=== PATIENT | male | born 1950 | race Caucasian/White ===

== ENCOUNTER 2018-03-28 09:16 | Emergency (ER) | payer MEDICARE, SELFPAY ==
[2018-03-28 09:20] VITALS: BP 149/88; PULSE 66; RESP 14; TEMP 36.7; O2SAT 95; BMI 34.3
--- NOTE | 2018-03-28 09:37 | DI.RAD.S_ITS ---
PROCEDURE: XR CHEST 2V INDICATIONS: cough x months TECHNIQUE: 2 views of the chest were acquired. COMPARISON: None. FINDINGS: Surgical changes and devices: None. Lungs and pleura: No pleural effusions or pneumothorax. Lungs are clear. Mediastinum: Mediastinal contours are normal. Heart size is normal. Bones and chest wall: No suspicious bony abnormalities. Soft tissues appear unremarkable. IMPRESSION: No acute process. Dictated by: Rahat Woodard M.D. on 03/28/2018 at 10:33 Approved by: Rahat Woodard M.D. on 03/28/2018 at 10:34
[2018-03-28] MEDS: ALBUTEROL/IPRATROPIUM 3 ML AMPUL INH (09:49)
--- NOTE | 2018-03-28 09:49 | ED.URI ---
HPI - URI/Sore Throat General Chief Complaint: Headache Stated Complaint: severe headaches when he coughs Time Seen by Provider: 03/28/18 09:41 Source: patient Mode of arrival: ambulatory Limitations: no limitations History of Present Illness HPI Narrative: Patient is 67-year-old male who presents with a variety of complaints. He has had some upper respiratory problems ongoing for at least a week. He says that he has been coughing quite a bit he denies any chest pain or shortness of breath. He says when he coughs his head hurts and his stomach hurts. He has no nausea or vomiting no abdominal pain. He does cough some stuff up. He at baseline has some sinus issues takes multiple medications for that. He denies any fever or neck pain. He says when he coughs the front of his head hurts worst. Denies fever or body aches MD Complaint: cough, sore throat, nasal congestion and sinus pain Related Data Home Medications Medication Instructions Recorded Confirmed azelastine 1 drp OPHTHALMIC (EYE) BID PRN 03/28/18 03/28/18 fluticasone-salmeterol [Advair 1 puff INHALATION BID 03/28/18 Diskus] lisinopril 10 mg PO DAILY 03/28/18 03/28/18 simvastatin 40 mg PO DAILY 03/28/18 03/28/18 Previous Rx's Medication Instructions Recorded albuterol sulfate 1 puff INHALATION Q4-6H PRN #8 gram 03/28/18 amoxicillin-pot clavulanate 1 tab PO BID #14 tab 03/28/18 [Augmentin] Review of Systems Review of Systems All systems reviewed & are unremarkable except as noted in HPI and below Constitutional Reports as per HPI, Denies body ache(s), Denies fever(s), Denies frequent falls and Reports headache(s) Eyes Denies blurry vision and Denies change in vision ENT Ears, Nose, Mouth, and Throat: Reports headache(s) Cardiovascular Denies chest pain, Denies irregular heart rhythm, Denies lightheadedness, Denies palpitations, Denies dyspnea, Denies dyspnea on exertion and Denies orthopnea Respiratory Reports change in phlegm color, Reports chest congestion, Reports cough, Reports pain with cough (Abdomen and head), Denies dyspnea and Denies dyspnea on exertion Gastrointestinal Gastrointestinal: Denies abdominal pain, Denies change in bowel habits, Denies diarrhea, Denies nausea and Denies vomiting Integumentary/Breasts Denies pruritus, Denies erythema, Denies rash and Denies wounds Neurologic Denies frequent falls and Reports headache(s) Endocrine Denies palpitations PFSH Medical History Hypertension (Acute) Pre-diabetes (Chronic) Social History Smoking Status: Former smoker Exam Initial Vital Signs Initial Vital Signs: Vital Signs Temperature 98.1 F 03/28/18 09:20 Pulse Rate 66 03/28/18 09:20 Respiratory Rate 14 03/28/18 09:20 Blood Pressure 149/88 H 03/28/18 09:20 Pulse Oximetry 95 03/28/18 09:20 GENERAL: Overweight male alert oriented does not appear in distress HEENT: Head atraumatic,EOMI, pupils reactive, tender over forehead palpation no maxillary sinus tenderness neck is supple PHARYNX: No erythema, no tonsillar exudate, no cervical lymphadenopathy CARDIOVASCULAR: Regular rate and rhythm without murmurs, rubs or gallops. RESPIRATORY: Breath sounds equal bilaterally, no wheezes rales or rhonchi. ABDOMEN: Soft, nontender. Normoactive bowel sounds all 4 quadrants. No guarding or rebound. EXTREMITIES: Normal range of motion, no clubbing or edema. Neurovascularly intact NEUROLOGICAL: Alert and oriented x4.Normal gait and speech. Cranial nerves II through XII grossly intact. SKIN: Warm, dry, no laceration, no petechiae, no rashes or lesions. Course Orders Ordered: ED Orders 03/28/18 09:37 Chest [XR chest 2V] Stat Discontinued Medications Albuterol/Ipratropium (Duoneb) 3 ml INH NOW ONE Stop: 03/28/18 09:38 Last Admin: 03/28/18 09:49 Dose: 3 ml Vital Signs - 8 hr 03/28/18 09:20 03/28/18 09:52 03/28/18 11:07 Temperature 98.1 F Pulse Rate 66 67 Respiratory Rate 14 12 Blood Pressure 149/88 H Blood Pressure [Right Arm] 154/77 H Pulse Oximetry 95 95 95 MDM - URI/Sore Throat Lab Data Attestation: I reviewed the patient's lab results. Imaging Data Chest x-ray: Radiologist's impression: PROCEDURE: XR CHEST 2V INDICATIONS: cough x months TECHNIQUE: 2 views of the chest were acquired. COMPARISON: None. FINDINGS: Surgical changes and devices: None. Lungs and pleura: No pleural effusions or pneumothorax. Lungs are clear. Mediastinum: Mediastinal contours are normal. Heart size is normal. Bones and chest wall: No suspicious bony abnormalities. Soft tissues appear unremarkable. IMPRESSION: No acute process. Dictated by: Rahat Woodard M.D. on 03/28/2018 at 10:33 Discharge Plan Departure Patient Disposition: Home Clinical Impression: Upper respiratory infection Discharge Date/Time: 03/28/18 11:09 Interventions: ED Discharge Assessment Last Done: 03/28/18 11:08 Instructions: DI for Sinusitis Activity Restrictions/Additional Instructions: *You have been diagnosed with a sinusitis upper respiratory infection *What to do: Chest x-ray is clear no pneumonia *Continue to take medications as directed Augmentin 875 twice a day Albuterol 1-2 puffs every 4 hr if needed for coughing episodes *Follow up with your primary care provider in 2-3 days *Return to ER if you should have fever [or] any new, worsening or concerning symptoms Prescriptions: New albuterol sulfate 90 mcg/actuation HFA aerosol inhaler 1 puff INHALATION Q4-6H PRN (Reason: shortness of breath or wheezing) Qty: 8 RF: 0 amoxicillin-pot clavulanate [Augmentin] 875-125 mg tablet 1 tab PO BID Qty: 14 RF: 0 No Action azelastine 0.05 % drops 1 drp ophthalmic (eye) BID PRN (Reason: Allergy Symptoms) RF: 0 simvastatin 40 mg tablet 40 mg PO DAILY RF: 0 lisinopril 10 mg tablet 10 mg PO DAILY RF: 0 fluticasone-salmeterol [Advair Diskus] 500-50 mcg/dose blister with device 1 puff Inhalation BID RF: 0
[2018-03-28 09:52] VITALS: O2SAT 95
[2018-03-28 11:07] VITALS: BP 154/77; PULSE 67; RESP 12; O2SAT 95
== END 2018-03-28 11:09 | disposition home or self-care (01) ==
PROVIDERS: Emergency Provider Emergency Medicine
DX: J06.9 Acute upper respiratory infection, unspecified (principal)
CPT/HCPCS: 71046; 94640; 99282; 99283

== ENCOUNTER → 2022-08-19 13:07 | Outpatient (CLI) | payer MEDICARE, SELFPAY ==
[2022-08-19 14:28] LABS: Influenza A - CEPHEID Flu A NEGATIVE (NEGATIVE); Influenza B - CEPHEID Flu B NEGATIVE (NEGATIVE); Respiratory Syncytial Virus Negative (Negative)
[2022-08-19 14:30] LABS: COVID-19 CEPHEID 4-PLEX PCR Negative (Negative)
== END ==
PROVIDERS: Visit Provider Nurse Practitioner Family
DX: R05.1 Acute cough (principal); Z20.822 Contact with and (suspected) exposure to COVID-19
CPT/HCPCS: 0241U

== ENCOUNTER 2023-03-16 11:43 | Emergency (ER) | payer MEDICARE, SELFPAY ==
[2023-03-16 11:54] VITALS: BP 160/87; PULSE 82; RESP 20; TEMP 36.6; O2SAT 97; BMI 34.9
--- NOTE | 2023-03-16 12:04 | DI.RAD.S_ITS ---
PROCEDURE: XR CHEST 2V INDICATIONS: cough TECHNIQUE: 2 views of the chest were acquired. COMPARISON: [facility], CR, XR CHEST 2V, 03/28/2018, 9:51. FINDINGS: Surgical changes and devices: None. Lungs and pleura: There is mild atelectasis at the left lung base. The lungs are otherwise clear. No pleural effusion or pneumothorax. Mediastinum: Mediastinal contours are normal. Heart size is normal. Bones and chest wall: No suspicious bony abnormalities. Soft tissues appear unremarkable. IMPRESSION: Left basilar atelectasis. No acute cardiopulmonary findings. Dictated by: Alisha Villarreal M.D. on 03/16/2023 at 12:49 Approved by: Alisha Villarreal M.D. on 03/16/2023 at 12:49
--- NOTE | 2023-03-16 13:52 | ED_ITS ---
HPI - URI/Sore Throat <Aman Antonio PA-C - Last Filed: 03/16/23 13:59> General Chief Complaint: Upper Respiratory Symptoms Stated Complaint: hurts when coughs t-14 Time Seen by Provider: 03/16/23 13:02 Source: patient Mode of arrival: Ambulatory History of Present Illness HPI Narrative: 72-year-old male with past medical history diabetes, hyperlipidemia, hypertension, asthma presents to the ED with 1 week of persistent cough following a cold that he had 3 weeks ago. Patient also stated that his cough got bad enough, that 1 time he had to cough so hard that his right chest muscles felt strained. Patient was seen at an urgent care, diagnosed with bronchitis, prescribed doxycycline and lidocaine patches. Patient states that currently he is in the ED for the lingering cough and the pain on his side. Patient denies fever, chills, shortness of breath, vomiting, diarrhea. Related Data Home Medications Medication Instructions Recorded Confirmed azelastine 0.05 % eye drops 1 drp ophthalmic (eye) BID PRN 03/28/18 08/19/22 Allergy Symptoms fluticasone 500 mcg-salmeterol 50 1 puff inhalation BID 03/28/18 08/19/22 mcg/dose blistr powdr for inhalation lisinopril 10 mg tablet 10 mg PO DAILY 03/28/18 08/19/22 simvastatin 40 mg tablet 40 mg PO DAILY 03/28/18 08/19/22 Previous Rx's Medication Instructions Recorded benzonatate 100 mg capsule 100 mg PO BID PRN cough #20 caps 08/19/22 fluticasone propionate 50 1 spray intranasal Q12H #16 grams 08/19/22 mcg/actuation nasal spray,suspension (Flonase Allergy Relief) loratadine 10 mg tablet (Claritin) 10 mg PO DAILY #30 tabs 08/19/22 benzonatate 200 mg capsule 200 mg PO TID PRN cough #30 caps 03/16/23 Allergies Allergy/AdvReac Type Severity Reaction Status Date / Time No Known Drug Allergies Allergy Unverified 08/19/22 12:43 Review of Systems <Aman Antonio PA-C - Last Filed: 03/16/23 13:59> Constitutional Constitutional: Denies chills, Denies fatigue, Denies fever(s), Denies frequent falls, Denies lethargy and Denies weakness Eyes Eyes: Denies change in vision, Denies eye discharge, Denies irritation and Denies loss of vision ENT Ears, Nose, Mouth, and Throat: Denies change in voice, Denies dizziness, Denies neck pain, Denies sore throat and Denies throat swelling Cardiovascular Cardiovascular: Denies chest pain, Denies irregular heart rhythm, Denies lightheadedness, Denies palpitations, Denies dyspnea, Denies dyspnea on exertion and Denies orthopnea Respiratory Respiratory: Reports cough, Denies dyspnea, Denies dyspnea on exertion and Denies wheezing Gastrointestinal Gastrointestinal: Denies abdominal pain, Denies change in bowel habits, Denies diarrhea, Denies nausea and Denies vomiting Musculoskeletal Musculoskeletal: Denies neck pain and Denies numbness Comments: Right-sided muscular pain in lateral chest area Integumentary/Breasts Skin/Breast: Denies pruritus, Denies erythema, Denies rash and Denies wounds Neurologic Neurologic: Denies behavioral changes, Denies confusion, Denies dizziness, Denies frequent falls, Denies loss of vision, Denies numbness and Denies weakness Psychiatric Psychiatric: Denies anxiety, Denies behavioral changes, Denies confusion, Denies depression, Denies homicidal ideation and Denies suicidal ideation Endocrine Endocrine: Denies fatigue, Denies flushing and Denies palpitations Hematologic/Lymphatic Hematologic/Lymphatic: Denies easy bruising Allergic/Immunologic Allergic/Immunologic: Denies urticaria, Denies throat swelling and Denies wheezing Patient History <Aman Antonio PA-C - Last Filed: 03/16/23 13:59> Medical History Hypertension Pre-diabetes Social History Smoking Status: Former smoker Smoking Status: Former smoker alcohol intake frequency: 0-2 drinks per day Substance Use Type: does not use Exam <Aman Antonio PA-C - Last Filed: 03/16/23 13:59> Narrative Exam Narrative: Const General:?cooperative, healthy appearing and comfortable [facility] Head:?normal to inspection Ears:?hearing grossly normal bilaterally Nose:?external nose normal Face and sinus:?normal facial exam and sinuses nontender Mouth:?oral mucosae normal Throat:?posterior oropharynx normal Eyes General:?appearance normal, both eyes and all related structures Neck Neck:?normal visual inspection and no lymphadenopathy noted Resp Effort & Inspection:?normal respiratory effort Auscultation:?clear to auscultation bilaterally Cardio Rate:?regular rate Rhythm:?regular rhythm Neuro General:?patient alert, patient awake and patient oriented x3 Initial Vital Signs Initial Vital Signs: Vital Signs Temperature 97.8 F 03/16/23 11:54 Pulse Rate 82 03/16/23 11:54 Respiratory Rate 20 03/16/23 11:54 Blood Pressure 160/87 H 03/16/23 11:54 Pulse Oximetry 97 03/16/23 11:54 Oxygen Delivery Method Room Air 03/16/23 11:54 <Viviane Hermosillo DO - Last Filed: 03/21/23 07:09> Initial Vital Signs Initial Vital Signs: Vital Signs Temperature 97.8 F 03/16/23 11:54 Pulse Rate 82 03/16/23 11:54 Respiratory Rate 20 03/16/23 11:54 Blood Pressure 160/87 H 03/16/23 11:54 Pulse Oximetry 97 03/16/23 11:54 Oxygen Delivery Method Room Air 03/16/23 11:54 Course <Aman Antonio PA-C - Last Filed: 03/16/23 13:59> Orders Ordered: ED Orders 03/16/23 12:03 Covid-19 + FLU A/B + RSV - PCR Stat 03/16/23 12:04 Chest [XR chest 2V] Stat Vital Signs Vital signs: Vital Signs - 8 hr 03/16/23 11:54 Temperature 97.8 F Pulse Rate 82 Respiratory Rate 20 Blood Pressure 160/87 H Pulse Oximetry 97 Oxygen Delivery Method Room Air <Viviane Hermosillo DO - Last Filed: 03/21/23 07:09> Orders Ordered: ED Orders 03/16/23 12:03 Covid-19 + FLU A/B + RSV - PCR Stat 03/16/23 12:04 Chest [XR chest 2V] Stat Vital Signs Vital signs: Vital Signs - 8 hr 03/16/23 11:54 Temperature 97.8 F Pulse Rate 82 Respiratory Rate 20 Blood Pressure 160/87 H Pulse Oximetry 97 Oxygen Delivery Method Room Air MDM - URI/Sore Throat <BETH Dos Santos Last Filed: 03/16/23 13:59> Lab Data Labs: Lab Results 03/16/23 Range/Units 12:03 SARS-CoV-2 (PCR) Positive H (Negative) Influenza A (RT-PCR) Flu a negative (NEGATIVE) Influenza B (RT-PCR) Flu b negative (NEGATIVE) RSV (PCR) Negative (Negative) MDM Narrative Medical decision making narrative: 72-year-old male with past medical history diabetes, hyperlipidemia, hypertension, asthma presents to the ED with 1 week of persistent cough following a cold that he had 3 weeks ago. Concern for pneumonia versus bronchitis versus URI versus musculoskeletal sprain/strain versus other. Chest x-ray was obtained which showed some atelectasis but no other acute findings. Lungs sound clear to auscultation. Patient's symptoms most consistent with bronchitis. Recommend stopping the doxycycline, given no pneumonia. Prescribed Tessalon Perles for cough. Recommend adding on Delsym. Recommend Tylenol, ibuprofen for pain control. Recommend follow-up with PCP. ED return precautions discussed with patient. Patient verbalized understanding. Medical records reviewed: Yes <Viviane Hermosillo, - Last Filed: 03/21/23 07:09> Lab Data Labs: Lab Results 03/16/23 Range/Units 12:03 SARS-CoV-2 (PCR) Positive H (Negative) Influenza A (RT-PCR) Flu a negative (NEGATIVE) Influenza B (RT-PCR) Flu b negative (NEGATIVE) RSV (PCR) Negative (Negative) Discharge Plan Departure Patient Disposition: Home Clinical Impression: COVID-19 Instructions: COVID-19 Activity Restrictions/Additional Instructions: You were evaluated in the ED today for a lingering cough after cold. Your chest x-ray was normal. Your lungs sound clear. Your right-sided pain is most consistent with a musculoskeletal sprain from coughing. You may take ibuprofen 600 mg every 8 hours with food. You may also add Tylenol 1000 mg every 8 hours for added pain control. You are being prescribed Tessalon Perles for the cough. Please take those as prescribed. You can also add on an [id number] cough medicine Delsym available at the drug store. You may continue the Salonpas lidocaine patches. Please stop the doxycycline since you do not have a pneumonia. Please continue to stay well hydrated. Continue your regular asthma and other medications. Please follow-up with your PCP as soon as possible. Return to the ED if you have worsening symptoms, chest pain, shortness of breath. Prescriptions: New benzonatate 200 mg capsule 200 mg PO TID PRN (Reason: cough) Qty: 30 0RF No Action fluticasone propionate [Flonase Allergy Relief] 50 mcg/actuation spray,s uspension 1 spray intranasal Q12H Qty: 16 0RF Rx Instructions: administer into each nostril benzonatate 100 mg capsule 100 mg PO BID PRN (Reason: cough) Qty: 20 0RF loratadine [Claritin] 10 mg tablet 10 mg PO DAILY Qty: 30 0RF azelastine 0.05 % drops 1 drp ophthalmic (eye) BID PRN (Reason: Allergy Symptoms) Patient Comments: INSTILL 1 GTT INTO BOTH EYES BID PRF ALLERGY SYMPTOMS simvastatin 40 mg tablet 40 mg PO DAILY lisinopril 10 mg tablet 10 mg PO DAILY fluticasone propion-salmeterol [Advair Diskus] 500-50 mcg/dose blister with device 1 puff Inhalation BID Referrals: Miscellaneous,Doctor, MD [Primary Care Provider] - Stand Alone Forms: Patient Portal/API ED Sign-out <Viviane Hermosillo DO - Last Filed: 03/21/23 07:09> Cosign ED Attending Cosellenature Attestation: I was immediately available in the department for consultation.
[2023-03-16 13:57] LABS: Influenza A - CEPHEID Flu A NEGATIVE (NEGATIVE); Influenza B - CEPHEID Flu B NEGATIVE (NEGATIVE); Respiratory Syncytial Virus Negative (Negative)
[2023-03-16 13:58] VITALS: BP 127/79; PULSE 84; RESP 18; TEMP 36.6; O2SAT 94
[2023-03-16 14:00] LABS: COVID-19 CEPHEID 4-PLEX PCR POSITIVE (Negative)
== END 2023-03-16 14:00 | disposition home or self-care (01) ==
PROVIDERS: Emergency Medicine; Emergency Provider Student in an Organized Health Care Education/Training Program
DX: R05.9 Cough, unspecified (principal)
CPT/HCPCS: 0241U; 71046; 99281; 99283

== ENCOUNTER 2023-08-14 11:32 | Emergency (ER) | payer MEDICARE, SELFPAY ==
[2023-08-14 11:37] VITALS: BP 126/76; PULSE 78; RESP 16; TEMP 36.4; O2SAT 96; BMI 33.7
--- NOTE | 2023-08-14 12:19 | ED.EXTPRO ---
HPI - Extremity Problem <Meghan Martinez PA-C - Last Filed: 08/14/23 15:11> General Chief complaint: Extremity Problem,Nontraumatic Stated complaint: pains in different parts of body Time Seen by Provider: 08/14/23 11:43 Source: patient Mode of arrival: Ambulatory History of Present Illness HPI Narrative: 73-year-old male with history of high blood pressure and high cholesterol here for multiple concerns. 1. Last night he noticed a painless swelling over his left elbow. Has never had this before. States it feels squishy but there is no pain, no fevers, no redness or warmth to the area. He denies any known injury. 2. He has hamstring strain that has been present for 2-3 months. States it bothers him when he has been sitting for a long time and stands up and when he is going downstairs but after walking a little bit it no longer bothers him. He is wondering if he should apply heating pad or OTC [place]Cro[place] or some other treatment. 3. He has been dealing with some aches in his hands and he was massaging the area on his right hand when he noticed a tiny bump over the radial aspect of his wrist. He wants to know if this is or something else. It is painless. 4. He has a history of gout in his big toe. Over the last 2 weeks he has had some moderate soreness in his right big toe but he notes it actually has been better yesterday and today. He has no gout medication with him and wonders if it would be a good idea to have some on hand in case he does have a gout flare-up. \ He is staying here in his 2nd home but lives in [place] the rest of the year where his PCP is. Therefore he does not have a PCP here. Related Data Home Medications Medication Instructions Recorded Confirmed azelastine 0.05 % eye drops 1 drp ophthalmic (eye) BID PRN 03/28/18 08/19/22 Allergy Symptoms fluticasone 500 mcg-salmeterol 50 1 puff inhalation BID 03/28/18 08/19/22 mcg/dose blistr powdr for inhalation lisinopril 10 mg tablet 10 mg PO DAILY 03/28/18 08/19/22 simvastatin 40 mg tablet 40 mg PO DAILY 03/28/18 08/19/22 Previous Rx's Medication Instructions Recorded benzonatate 100 mg capsule 100 mg PO BID PRN cough #20 caps 08/19/22 fluticasone propionate 50 1 spray intranasal Q12H #16 grams 08/19/22 mcg/actuation nasal spray,suspension (Flonase Allergy Relief) loratadine 10 mg tablet (Claritin) 10 mg PO DAILY #30 tabs 08/19/22 benzonatate 200 mg capsule 200 mg PO TID PRN cough #30 caps 03/16/23 indomethacin 50 mg capsule 50 mg PO TID 5 days #15 caps 08/14/23 Allergies Allergy/AdvReac Type Severity Reaction Status Date / Time No Known Drug Allergies Allergy Verified 08/14/23 11:42 Patient History <Meghan Martinez PA-C - Last Filed: 08/14/23 15:11> Medical History Hypertension Pre-diabetes Social History Smoking Status: Former smoker Smoking Status: Former smoker alcohol intake frequency: 0-2 drinks per day Substance Use Type: does not use Exam <Meghan Martinez PA-C - Last Filed: 08/14/23 15:11> Narrative Exam Narrative: GENERAL: Well-developed, well-nourished, appears stated age. In no acute distress, very friendly and talkative. HEAD: Atraumatic. Normocephalic. EYES: Pupils equal round and reactive. Extraocular motions intact. No scleral icterus. No injection or drainage. ENT: Nose without bleeding, purulent drainage. Airway patent. NECK: Trachea midline. Non tender RESPIRATORY: Respiratory rate and effort normal EXTREMITIES: Left elbow with visible and palpable fluctuant swelling over the posterior point of the elbow. There is no redness, tenderness, warmth, or other indications of infection. Normal examination of the bilateral feet with the exception of significant onychomycosis on all the digits. No evidence of a swollen, red joint of the toe or MTP. Right wrist with a possible very small less than 0.5 cm bump palpated in the patient's area of concern but it is barely palpable and he is full range of motion of the area with no tenderness. NEURO: AOx3. SKIN: No rash or erythema of visible areas Initial Vital Signs Initial Vital Signs: Vital Signs Temperature 97.6 F 08/14/23 11:37 Pulse Rate 78 08/14/23 11:37 Respiratory Rate 16 08/14/23 11:37 Blood Pressure 126/76 08/14/23 11:37 Pulse Oximetry 96 08/14/23 11:37 Oxygen Delivery Method Room Air 08/14/23 11:37 <DO Jonathan Rico Last Filed: 08/15/23 07:29> Initial Vital Signs Initial Vital Signs: Vital Signs Temperature 97.6 F 08/14/23 11:37 Pulse Rate 78 08/14/23 11:37 Respiratory Rate 16 08/14/23 11:37 Blood Pressure 126/76 08/14/23 11:37 Pulse Oximetry 96 08/14/23 11:37 Oxygen Delivery Method Room Air 08/14/23 11:37 Course <Meghan Martinez PA-C - Last Filed: 08/14/23 15:11> Vital Signs Vital signs: Vital Signs - 8 hr 08/14/23 11:37 08/14/23 13:07 Temperature 97.6 F Pulse Rate 78 68 Respiratory Rate 16 22 Blood Pressure 126/76 124/69 Pulse Oximetry 96 95 Oxygen Delivery Method Room Air Room Air <DO Jonathan Rico Last Filed: 08/15/23 07:29> Vital Signs Vital signs: Vital Signs - 8 hr 08/14/23 11:37 08/14/23 13:07 Temperature 97.6 F Pulse Rate 78 68 Respiratory Rate 16 22 Blood Pressure 126/76 124/69 Pulse Oximetry 96 95 Oxygen Delivery Method Room Air Room Air MDM - Extremity (Nontraumatic) <Meghan Martinez PA-C - Last Filed: 08/14/23 15:11> MDM Narrative Medical decision making narrative: Patient comes in with multiple concerns today. His elbow exam is strongly suggestive of olecranon bursitis and he does not have any clinical signs or symptoms of infection so therefore aspiration isn't warranted at this time. We discussed protecting the elbow joint and avoiding placing any pressure on it. We discussed signs and symptoms of worsening condition and/or infection and when to return to the ED. for his hamstring strain this is more of a chronic issue that he should be following up with his PCP for. He does not have significant disability from this issue, he is ambulating without difficulty, has good range of motion. We discussed some conservative measures for pain relief and ultimately that he should follow up with PCP to discuss maybe a physical therapy referral. For his right wrist, I have a difficult time palpating any bump where the patient is concerned. He just noticed this 1 week ago incidentally so it could have been present for much longer. We discussed that there is no alarming features at this time and I did offer an x-ray but patient declined. He will follow up with his PCP in [place] if it is growing larger causing any pain by the time he returns. Finally he does not appear to have an active gout attack at this time. He is in this area until December and will not be around his PCP until then so I did prescribe him a short supply of indomethacin should he experience an obvious back between now and then signs and symptoms that are consistent with a gout attack and some more conservative measures he could try before taking the indomethacin. Patient understands and agrees with the plan for all of the above. Discharge Plan Departure Patient Disposition: Home Clinical Impression: Bursitis, olecranon Qualifiers: Laterality: left Qualified Code(s): M70.22 - Olecranon bursitis, left elbow Gout Qualifiers: Gout site: foot Gout etiology: unspecified cause Chronicity: unspecified Laterality: left Qualified Code(s): M10.9 - Gout, unspecified Right hamstring muscle strain Qualifiers: Encounter type: initial encounter Qualified Code(s): S76.311A - Strain of muscle, fascia and tendon of the posterior muscle group at thigh level, right thigh, initial encounter Instructions: DI for Hamstring Strain, DI for Elbow Bursitis Activity Restrictions/Additional Instructions: Thank you for choosing us to care for you today. You were seen for a few different reasons. First, your left elbow has olecranon bursitis. There are no signs of infection at this time but please monitor for significant redness, warmth to touch, pain, fever and return if these occur. Please take care to avoid leaning on or bumping your elbow or using it in any kind of way that applies pressure to the area. This condition should resolve on its own. Next,you had concerns about gout in your foot. At this time you do not appear to have a gout attack but I have prescribed indomethacin 50 mg to be taken in the event that you do have another gout attack while you are away from your primary care physician. Third we discussed your hamstring strain. We discussed some supportive care measures he can do in the meantime but ultimately he will need to follow up with her primary care physician to possibly get a physical therapy referral if it continues to bother you. Prescriptions: New indomethacin 50 mg capsule 50 mg PO TID 5 Days Qty: 15 0RF Rx Instructions: administer with food or milk No Action fluticasone propionate [Flonase Allergy Relief] 50 mcg/actuation spray,suspension 1 spray intranasal Q12H Qty: 16 0RF Rx Instructions: administer into each nostril benzonatate 100 mg capsule 100 mg PO BID PRN (Reason: cough) Qty: 20 0RF loratadine [Claritin] 10 mg tablet 10 mg PO DAILY Qty: 30 0RF azelastine 0.05 % drops 1 drp ophthalmic (eye) BID PRN (Reason: Allergy Symptoms) Patient Comments: INSTILL 1 GTT INTO BOTH EYES BID PRF ALLERGY SYMPTOMS simvastatin 40 mg tablet 40 mg PO DAILY lisinopril 10 mg tablet 10 mg PO DAILY fluticasone propion-salmeterol [Advair Diskus] 500-50 mcg/dose blister with device 1 puff Inhalation BID benzonatate 200 mg capsule 200 mg PO TID PRN (Reason: cough) Qty: 30 0RF Referrals: Miscellaneous,Doctor, MD [Primary Care Provider] - Stand Alone Forms: Patient Portal/API ED Sign-out <Heather Campo DO - Last Filed: 08/15/23 07:29> Cosign ED Attending Steve Attestation: I was available for consultation.
--- NOTE | 2023-08-14 12:47 | PC.NURSE ---
pt states he pulled his hamstring 3 months ago and it has no fully healed and he is wondering if we have any advice to give on this. also is concerned with his big right toe having the feeling of a gout flare up. he does not take daily meds for this, but was on meds for a flare up 4 years ago. pt recently noticed a small lump on the base of his right thumb. no pain, full ROM. just wondering what this could be. last night patient states he was leaning on the counter in the kitchen and he noticed his elbow was swollen. no pain, full ROM. CMS intact distally. elbow is squishy like marshmellow about the size of a golf ball. denies any injury or trauma, insect bite or wound.
[2023-08-14 13:07] VITALS: BP 124/69; PULSE 68; RESP 22; O2SAT 95
== END 2023-08-14 13:08 | disposition home or self-care (01) ==
PROVIDERS: Emergency Provider Physician Assistant
DX: M70.22 Olecranon bursitis, left elbow (principal); S76.311A Strain of muscle, fascia and tendon of the posterior muscle group at thigh level, right thigh, initial encounter; M10.9 Gout, unspecified
CPT/HCPCS: 99281

== ENCOUNTER 2023-11-26 15:10 | Emergency (ER) | payer MEDICARE, SELFPAY ==
[2023-11-26 15:14] VITALS: BP 133/74; PULSE 87; RESP 18; TEMP 36.7; O2SAT 94; BMI 35.3
--- NOTE | 2023-11-26 18:29 | ED.SKABFB ---
HPI - Skin/Abscess/Foreign Bdy General Chief complaint: Skin/Abscess/Foreign Body Stated complaint: Facial Rash Source: patient Mode of arrival: Ambulatory Limitations: no limitations History of Present Illness HPI narrative: Patient left without being seen by provider Related Data Home Medications Medication Instructions Recorded Confirmed azelastine 0.05 % eye drops 1 drp ophthalmic (eye) BID PRN 03/28/18 08/19/22 Allergy Symptoms fluticasone 500 mcg-salmeterol 50 1 puff inhalation BID 03/28/18 08/19/22 mcg/dose blistr powdr for inhalation lisinopril 10 mg tablet 10 mg PO DAILY 03/28/18 08/19/22 simvastatin 40 mg tablet 40 mg PO DAILY 03/28/18 08/19/22 Previous Rx's Medication Instructions Recorded benzonatate 100 mg capsule 100 mg PO BID PRN cough #20 caps 08/19/22 fluticasone propionate 50 1 spray intranasal Q12H #16 grams 08/19/22 mcg/actuation nasal spray,suspension (Flonase Allergy Relief) loratadine 10 mg tablet (Claritin) 10 mg PO DAILY #30 tabs 08/19/22 benzonatate 200 mg capsule 200 mg PO TID PRN cough #30 caps 03/16/23 Allergies Allergy/AdvReac Type Severity Reaction Status Date / Time No Known Drug Allergies Allergy Verified 11/26/23 15:19 Patient History Medical History Hypertension Pre-diabetes Social History Smoking Status: Never smoker Smoking Status: Never smoker alcohol intake frequency: a few times a month Substance Use Type: does not use Exam Initial Vital Signs Initial Vital Signs: Vital Signs Temperature 98.1 F 11/26/23 15:14 Pulse Rate 87 11/26/23 15:14 Respiratory Rate 18 11/26/23 15:14 Blood Pressure 133/74 11/26/23 15:14 Pulse Oximetry 94 11/26/23 15:14 Oxygen Delivery Method Room Air 11/26/23 15:14 Course Vital Signs Vital signs: Vital Signs - 8 hr 11/26/23 15:14 Temperature 98.1 F Pulse Rate 87 Respiratory Rate 18 Blood Pressure 133/74 Pulse Oximetry 94 Oxygen Delivery Method Room Air Discharge Plan Departure Patient Disposition: Left Without Being Seen Clinical Impression: Patient left after triage Prescriptions: No Action fluticasone propionate [Flonase Allergy Relief] 50 mcg/actuation spray,suspension 1 spray intranasal Q12H Qty: 16 0RF Rx Instructions: administer into each nostril benzonatate 100 mg capsule 100 mg PO BID PRN (Reason: cough) Qty: 20 0RF loratadine [Claritin] 10 mg tablet 10 mg PO DAILY Qty: 30 0RF azelastine 0.05 % drops 1 drp ophthalmic (eye) BID PRN (Reason: Allergy Symptoms) Patient Comments: INSTILL 1 GTT INTO BOTH EYES BID PRF ALLERGY SYMPTOMS simvastatin 40 mg tablet 40 mg PO DAILY lisinopril 10 mg tablet 10 mg PO DAILY fluticasone propion-salmeterol [Advair Diskus] 500-50 mcg/dose blister with device 1 puff Inhalation BID benzonatate 200 mg capsule 200 mg PO TID PRN (Reason: cough) Qty: 30 0RF
== END 2023-11-26 17:10 | disposition left against medical advice (07) ==
PROVIDERS: Emergency Provider Emergency Medicine
CPT/HCPCS: 99281

== ENCOUNTER → 2024-03-26 09:45 | Outpatient (CLI) | payer MEDICARE, SELFPAY ==
--- NOTE | 2024-03-26 09:48 | DI.RAD.S_ITS ---
PROCEDURE: XR CHEST 2V INDICATIONS: Cough, rhonchi TECHNIQUE: 2 views of the chest were acquired. COMPARISON: [facility], CR, XR CHEST 2V, 03/16/2023, 12:12. FINDINGS: Surgical changes and devices: None. Lungs and pleura: Lungs are clear. No pleural effusions or pneumothorax. Mediastinum: Mediastinal contours are normal. Heart size is normal. Bones and chest wall: No suspicious bony abnormalities. Soft tissues appear unremarkable. IMPRESSION: No acute cardiopulmonary abnormality is seen. Dictated by: Eula Kline M.D. on 03/26/2024 at 9:03 Approved by: Eula Kline M.D. on 03/26/2024 at 9:07
== END ==
PROVIDERS: Referring Provider Physician Assistant Surgical; Visit Provider Physician Assistant Surgical
DX: R05.9 Cough, unspecified (principal)
CPT/HCPCS: 71046